=== PATIENT | female | born 1980 | race Caucasian/White ===

== ENCOUNTER → 2020-07-01 | Outpatient (CLI) | payer OTHER ==
[2020-07-01 17:30] LABS: CALCIUM 9.4 mg/dL (8.5-10.1); GFR 60.8; POTASSIUM 3.7 mmol/L (3.5-5.1)
== END ==
LOC: LAB 15:47
PROVIDERS: ATTEND Family Medicine
DX: R00.2 Palpitations (principal); R07.9 Chest pain, unspecified
CPT/HCPCS: 36415; 80048; 84484

== ENCOUNTER → 2020-07-18 | Outpatient (CLI) | payer OTHER ==
--- NOTE | 2020-07-18 12:53 | RAD ---
PROCEDURE: HAND RIGHT 3V STUDY DATE: 07/18/2020 CLINICAL INDICATION / HISTORY: Reason: INJURY / Spl. Instructions: / History: . TECHNIQUE: PA, lateral and oblique views of the right hand. COMPARISON: None FINDINGS: No fracture or dislocation is identified. The bone density is normal. The joint spaces are maintained, and there are no erosions to suggest an inflammatory arthropathy. The soft tissues are unremarkable. IMPRESSION: No acute osseous abnormality. Electronically signed by: Greg Mayer MD (07/18/2020 12:50 PM) [id number]
== END ==
LOC: RAD 11:52
PROVIDERS: ATTEND Physician Assistant Medical
DX: M79.641 Pain in right hand (principal)
CPT/HCPCS: 73130

== ENCOUNTER 2020-08-09 19:18 | Emergency (ER) | payer OTHER ==
[~2020-08-09] VITALS: Ht 170.2 cm; Wt 77.0 kg
[2020-08-09 19:29] VITALS: BP 161/114
--- NOTE | 2020-08-09 21:22 | RAD ---
EXAM: Left ankle, 3 views. HISTORY: Pain. COMPARISON: None. FINDINGS: 3 views of the left ankle are obtained. There is a tiny ossicle along the posterior medial talus, likely due to the sequela of remote injury. No acute fracture is seen. The ankle mortise is intact. There is a small plantar spur. IMPRESSION: No acute osseous finding. Electronically signed by: Mary Lomeli MD (08/09/2020 9:20 PM) [facility]
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
== END 2020-08-09 22:02 | disposition home or self-care (01) ==
LOC: ER 19:18
DX: M25.572 Pain in left ankle and joints of left foot (principal); I10 Essential (primary) hypertension; Z88.8 Allergy status to other drugs, medicaments and biological substances; V09.9XXA Pedestrian injured in unspecified transport accident, initial encounter; Y93.89 Activity, other specified; Y92.89 Other specified places as the place of occurrence of the external cause; Y99.8 Other external cause status
CPT/HCPCS: 29515; 73610; 99283

== ENCOUNTER 2020-11-11 15:37 | Emergency (ER) | payer OTHER ==
[~2020-11-11] VITALS: Ht 170.2 cm; Wt 77.0 kg
[2020-11-11] MEDS ORDERED: MECLIZINE 12.5 MG TABLET. PO ONE (16:30)
[2020-11-11] MEDS ORDERED: IV NORMAL SALINE 1,000ML 1,000 ML IV ONE (16:30)
[2020-11-11 16:41] LABS: BASO % 0 % (0-3); EOS # 0.3 x10^3/uL (0.0-0.7); EOS % 3 % (0-3); HEMOGLOBIN 14.5 g/dL (12.0-15.5); LYMPH # 1.5 x10^3/uL (1.0-4.8); LYMPH % 19 % (24-48); MEAN CORPUSCULAR HEMOGLOBIN 32 pg (25-35); MEAN CORPUSCULAR HGB CONC 34 g/dL (31-37); MEAN CORPUSCULAR VOLUME 93 fL (79-100); MONO # 0.7 x10^3/uL (0.0-1.1); MONO % 9 % (0-9); NEUT # 5.2 x10^3uL (1.8-7.7); NEUT % 68 % (31-73); PLATELET COUNT 223 x10^3/uL (140-400); RED BLOOD COUNT 4.52 x10^6/uL (3.50-5.40); RED CELL DISTRIBUTION WIDTH 12.8 % (11.5-14.5); WHITE BLOOD COUNT 7.7 x10^3/uL (4.0-11.0)
--- NOTE | 2020-11-11 16:43 | RAD ---
Study: XR CHEST 1V Indication: Vertigo. Comparison: None. Findings: Within normal limits cardiomediastinal silhouette and soraya. No lobar consolidation, layering effusion or pneumothorax. Partially imaged ACDF construct likely spanning C4-C7. Impression: No acute radiographic abnormality of the chest. Electronically signed by: ARUTRO JIMENEZ MD (11/11/2020 4:40 PM) [facility]
--- NOTE | 2020-11-11 16:43 | RAD ---
Exam: CT head INDICATION: Vertigo TECHNIQUE: Sequential axial images through the head were obtained without the administration of IV co ntrast. Comparisons: None FINDINGS: No focal parenchymal lesion or hemorrhage is identified. There is no midline shift or sulcal effaceme nt. No acute vascular territory infarction is identified. Pérez-white distinction is preserved. The ventricular system is within normal limits without compression hydrocephalus. The basal cisterns are well maintained. The visualized portions of the paranasal sinuses and mastoid air cells are well-pneumatized. No acute fractures. IMPRESSION: No acute intracranial abnormality. Exposure: One or more of the following in the visualized dose reduction techniques were utilized for this examination: 1. Automated exposure control 2. Adjustment of the MA and/or KV according to patient size Use of iterative of reconstructive technique Electronically signed by: Bethany Avila MD (11/11/2020 4:41 PM) [facility]
[2020-11-11 16:47] LABS: CALCIUM 8.8 mg/dL (8.5-10.1); CREATININE 0.9 mg/dL (0.6-1.0); GFR 68.7; POTASSIUM 3.8 mmol/L (3.5-5.1)
--- NOTE | 2020-11-11 16:52 | PHYS DOC ---
Past History Past Medical History: Hypertension, Other Additional Past Medical Histor: ADHD, INSOMNIA (SHIRLEY NAJERA MD) Past Surgical History: Hysterectomy, Other Additional Past Surgical Histo: R ANKLE, L FINGER, NECK SX (SHIRLEY NAJERA MD) Alcohol Use: None (SHIRLEY NAJERA MD) General Adult EDM: Chief Complaint: DIZZY/LIGHT HEADED HPI: HPI: Patient is a 40-year-old female coming in for multiple complaints. Patient states that starting around 11 AM today she was sitting watching television when she started feeling dizzy. Patient states she has body aches, lightheadedness, right-sided headache. Patient received her second maternal dose of Covid vaccine yesterday. States she felt well prior. Denies any tinnitus, hearing loss, ear pain. Patient has occasional headaches. Has not checked her temperature. Denies any vomiting or diarrhea. (SHIRLEY NAJERA MD) Review of Systems: Review of Systems: All other systems within normal limits except for as noted in the HPI (SHIRLEY NAJERA MD) Current Medications: Current Meds: Current Medications Medications (Trade) Dose Ordered Sig/Ila Start Time Stop Time Status Last Admin Dose Admin Meclizine HCl (Antivert) 25 mg 1X ONCE 11/11/20 16:30 11/11/20 16:31 DC 11/11/20 16:45 25 MG Sodium Chloride 1,000 ml @ 1,000 mls/hr 1X ONCE 11/11/20 16:30 11/11/20 17:29 11/11/20 16:44 1,000 MLS/HR (SHIRLEY NAJERA MD) Allergies: Allergies: Allergies Coded Allergies Type Severity Reaction Last Updated Verified cyclobenzaprine Allergy Unknown 08/09/20 Yes ketorolac Allergy Unknown 08/09/20 Yes (SHIRLEY NAJERA MD) Physical Exam: PE: Constitutional: Well developed, well nourished, no acute distress, non-toxic appearance. [] HENT: Normocephalic, atraumatic, bilateral external ears normal, bilateral TMs normal, nose normal. [] Eyes: PERRLA, conjunctiva normal, no discharge, extraocular intact, no nystagmus. [] Neck: No rigidity, supple, no stridor, no tenderness or cervical ly mphadenopathy. [] Cardiovascular: Regular rate and rhythm, brisk cap refill [] Lungs & Thorax: Non labored symmetric respirations, no tachypnea or respiratory distress [] Abdomen: Soft, nondistended. Skin: Warm, dry, no erythema, no rash, no pallor. [] Back: Unremarkable Extremities: No deformities, range of motion grossly intact, no lower extremity edema [] Neurologic: Alert and oriented X 3, no focal deficits noted. [] Psychologic: Affect normal, judgement normal, mood normal. [] (SHIRLEY NAJERA MD) Current Patient Data: Vital Signs: Vital Signs Date Time Temp Pulse Resp B/P (MAP) Pulse Ox O2 Delivery O2 Flow Rate FiO2 11/11/20 15:53 98.4 84 17 158/84 (108) 97 Room Air (SHIRLEY NAJERA MD) EKG: EKG: No sinus rhythm, heart rate 79 bpm, no ST elevation or depression, no ectopy, normal axis. [] (SHIRLEY NAJERA MD) Radiology/Procedures: Radiology/Procedures: Study: XR CHEST 1V Indication: Vertigo. Comparison: None. Findings: Within normal limits cardiomediastinal silhouette and soraya. No lobar consolidation, layering effusion or pneumothorax. Partially imaged ACDF construct likely spanning C4-C7. Impression: No acute radiographic abnormality of the chest. Exam: CT head INDICATION: Vertigo TECHNIQUE: Sequential axial images through the head were obtained without the administration of IV contrast. Comparisons: None FINDINGS: No focal parenchymal lesion or hemorrhage is identified. There is no midline shift or sulcal effacement. No acute vascular territory infarction is identified. Pérez-white distinction is preserved. The ventricular system is within normal limits without compression hydrocephalus. The basal cisterns are well maintained. The visualized portions of the paranasal sinuses and mastoid air cells are well-pneumatized. No acute fractures. IMPRESSION: No acute intracranial abnormality. [] (SHIRLEY NAJERA MD) Heart Score: C/O Chest Pain: No Risk Factors: Risk Factors: DM, Current or recent (<one month) smoker, HTN, HLP, family history of CAD, obesity. Risk Scores: Score 0 - 3: 2.5% MACE over next 6 weeks - Discharge Home Score 4 - 6: 20.3% MACE over next 6 weeks - Admit for Clinical Observation Score 7 - 10: 72.7% MACE over next 6 weeks - Early Invasive Strategies (SHIRLEY NAJERA MD) Course & Med Decision Making: Course & Med Decision Making Vertigo relieved with meclizine, still complaining of a headache despite Tylenol. Will give migraine cocktail. Work-up unremarkable. Pending medications at shift change, care transition to Dr. Schulte. [] (SHIRLEY NAJERA MD) Course & Med Decision Making Patient is a 40-year-old female who presented with headache. After headache cocktail, patient stated she was feeling better and ready to be discharged home. Gave headache/migraine symptom control options for home. Advised to follow-up with primary care physician soon as she can to discuss migraines and migraine management. Gave strict return precautions to the ED. Family grateful, verbalized understanding and agreed with plan of discharge. (SHIV FAJARDO MD) Dragon Disclaimer: Dragon Disclaimer: This electronic medical record was generated, in whole or in part, using a voice recognition dictation system. (SHIRLEY NAJERA MD) Departure Departure: Impression: Primary Impression: Headache Additional Impression: Vertigo Disposition: 01 DC HOME SELF CARE/HOMELESS Condition: GOOD Referrals: BRIGIDO BISHOP (PCP) Patient Instructions: General Headache Without Cause Additional Instructions: Please read the attached information. As discussed you can use Excedrin, ibuprofen, Benadryl and Zofran as needed for headache control at home. Please make an appointment with your primary care physician as soon as you can to discuss chronic migraine management. Please come back to the ED with new or concerning symptoms. Scripts Ondansetron Hcl (ZOFRAN) 4 Mg Tablet 1 TAB PO TID PRN for NAUSEA, #6 TAB 2 Refills Prov: SHIV FAJARDO MD 11/11/20 SHIRLEY NAJERA MD Nov 11, 2020 16:52 SHIV FAJARDO MD Nov 11, 2020 20:09
[2020-11-11 16:53] LABS: ALBUMIN 3.9 g/dL (3.4-5.0); ALBUMIN/GLOBULIN RATIO 1.1 (1.0-1.7); MAGNESIUM 1.8 mg/dL (1.8-2.4); TOTAL BILIRUBIN 0.6 mg/dL (0.2-1.0); TOTAL PROTEIN 7.5 g/dL (6.4-8.2)
[2020-11-11] MEDS ORDERED: ACETAMINOPHEN 500 MG TABLET PO ONE (17:00)
--- NOTE | 2020-11-11 17:00 | EKG ---
[address] [address] Test Date: 2020-11-11 Test Time: 16:39:14 Pat Name: VINNY ROB Department: Room: Gender: F Outside Sales Account Representative: : 1980 Requested By: SHIRLEY NAJERA Order Number: [id number] Reading MD: Measurements Intervals [place] Rate: 79 P: 50 AK: 166 QRS: 28 QRSD: 80 T: 34 QT: 400 QTc: 460 Interpretive Statements SINUS RHYTHM NORMAL ECG RI6.02 No previous ECG available for comparison
[2020-11-11] MEDS ORDERED: IV NORMAL SALINE 500ML 500 ML IV ONE (18:00)
[2020-11-11] MEDS ORDERED: PROCHLORPERAZINE 10 MG/2 ML VIAL. IV ONE (18:00)
[2020-11-11] MEDS ORDERED: diphenhydrAMINE 50 MG/ML VIAL IVP ONE (18:00)
[2020-11-11] MEDS ORDERED: KETOROLAC 15 MG/ML VIAL. IVP ONE (18:00)
[2020-11-11 18:23] LABS: BILIRUBIN,URINE NEG (NEG); CLARITY,URINE CLEAR; COLOR,URINE STRAW; GLUCOSE,URINE NEG (NEG); NITRITE,URINE NEG (NEG); UROBILINOGEN,URINE 0.2 mg/dL (0.2 mg/dL)
[2020-11-11 18:24] LABS: BACTERIA,URINE 0 /HPF (0-FEW); RBC,URINE 0 /HPF (0-2); SQUAMOUS EPITHELIAL CELL,UR MOD /LPF; WBC,URINE OCC /HPF (0-4)
[2020-11-11] MEDS ORDERED: ONDANSETRON PF 4 MG/2 ML VIAL. IVP ONE (19:00)
[2020-11-11] MEDS ORDERED: MORPHINE SULFATE 2 MG/ML DISP.SYRIN. IV ONE (19:00)
[2020-11-11] MEDS ORDERED: ONDA4TAB7 PO (20:10)
[2020-11-11 20:28] VITALS: BP 114/72
== END 2020-11-11 20:30 | disposition home or self-care (01) ==
LOC: ER 15:37
DX: R51.9 Headache, unspecified (principal); R42 Dizziness and giddiness; I10 Essential (primary) hypertension; F90.9 Attention-deficit hyperactivity disorder, unspecified type; Z90.710 Acquired absence of both cervix and uterus; Z98.890 Other specified postprocedural states; Z88.8 Allergy status to other drugs, medicaments and biological substances
CPT/HCPCS: 36415; 70450; 71045; 80053; 81001; 83605; 83735; 85025; 93005; 96361; 96374; 96375; 99285; J0780; J1200; J1885; J2270; J2405; J7030; J7040

== ENCOUNTER → 2020-11-29 | Outpatient (CLI) | payer OTHER ==
[2020-11-11 20:28] VITALS: BP 114/72
[~2020-11-29] MED LIST: ONDA4TAB7 PO
--- NOTE | 2020-11-30 08:22 | RAD ---
PROCEDURE: XR HAND_RIGHT 3 VIEWS STUDY DATE: 11/29/2020 CLINICAL INDICATION / HISTORY: Right hand pain after a fall. TECHNIQUE: PA, lateral and oblique views of the right hand. COMPARISON: 07/18/2020 right hand x-rays. FINDINGS: No fracture or dislocation is identified. The bone density is normal. The joint spaces are maintained, and there are no erosions to suggest an inflammatory arthropathy. The soft tissues are un remarkable. IMPRESSION: No acute osseous abnormality. Electronically signed by: Greg Mayer MD (11/30/2020 8:19 AM) [id number]
== END ==
LOC: RAD 15:02
PROVIDERS: ATTEND Physician Assistant Medical
DX: S69.90XA Unspecified injury of unspecified wrist, hand and finger(s), initial encounter (principal); X58.XXXA Exposure to other specified factors, initial encounter; Y93.89 Activity, other specified; Y92.89 Other specified places as the place of occurrence of the external cause; Y99.8 Other external cause status
CPT/HCPCS: 73130

== ENCOUNTER → 2020-12-27 | Outpatient (CLI) | payer OTHER ==
--- NOTE | 2020-12-27 10:46 | RAD ---
EXAM: LEFT ELBOW 3 VIEWS. HISTORY: Fall, pain. COMPARISON: None. FINDINGS: No fractures are identified. Joint spaces and alignment are maintained. There are small ost eophytes along the humeral ulnar articulation. There is no joint effusion. IMPRESSION: 1. No fracture or joint effusion. 2. 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 Electronically signed by: Raffi Bravo MD (12/27/2020 10:44 AM) [id number]
== END ==
LOC: RAD 10:21
PROVIDERS: ATTEND Physician Assistant Medical
DX: M19.022 Primary osteoarthritis, left elbow (principal)
CPT/HCPCS: 73080

== ENCOUNTER 2021-03-16 16:43 | Emergency (ER) | payer OTHER ==
[~2021-03-16] VITALS: Ht 170.2 cm; Wt 78.5 kg
[2021-03-16 16:51] VITALS: BP 151/99
[2021-03-16] MEDS ORDERED: CEPH500T PO (17:47)
--- NOTE | 2021-03-16 17:48 | PHYS DOC ---
Past History Past Medical History: Hypertension, Other Additional Past Medical Histor: ADHD, INSOMNIA (RUSTY KOCH APRN) Past Surgical History: Hysterectomy, Other Additional Past Surgical Histo: R ANKLE, L FINGER, NECK SX (RUSTY KOCH APRN) Alcohol Use: None (RUSTY KOCH APRN) General Adult EDM: Chief Complaint: LOWER EXTREMITY SWELLING HPI: HPI: Patient is a 40-year-old female who presents to the ER today for also the anterior aspects of her bilateral legs. Patient reports that she sat outside with her family on Saturday and noticed the redness along with pain and swelling on Saturday. She denies any new products, injuries, insect bites, chest pain, shortness of breath, difficulty breathing, periods of immobility, leg. (RUSTY KOCH APRN) Review of Systems: Review of Systems: 14 body systems of the review of systems have been reviewed. See HPI for pertinent positive and negative responses, otherwise all other systems are negative, nonpertinent or noncontributory (RUSTY KOCH APRN) Allergies: Allergies: Allergies Coded Allergies Type Severity Reaction Last Updated Verified cyclobenzaprine Allergy Unknown 08/09/20 Yes ketorolac Allergy Unknown 08/09/20 Yes (RUSTY KOCH APRN) Physical Exam: PE: Constitutional: Well developed, well nourished, no acute distress, non-toxic appearance. [] HENT: Normocephalic, atraumatic, no oropharyngeal swelling, uvula midline, no trismus, postnasal drainage noted Eyes: PERRL, conjunctiva normal, no discharge. [] Neck: Normal range of motion, no stridor Cardiovascular: Normal peripheral perfusion, no edema Lungs & Thorax: No increased work of breathing, no tachypnea Abdomen: Bowel sounds normal, soft, no tenderness, no masses, no pulsatile masses. [] Skin: Warm, dry, patient has dark red discoloration to the anterior aspect of her bilateral lower legs that extends to her thighs and into the straight line appears that this may be sunburn versus skin infection Back: Normal range of motion Extremities: No tenderness, no cyanosis, no clubbing, ROM intact, no edema. [] Neurologic: Alert and oriented X 3, normal motor function, normal sensory function, no focal deficits noted. [] Psychologic: Affect normal, judgement normal, mood normal. [] (RUSTY KOCH APRN) Current Patient Data: Vital Signs: Vital Signs Date Time Temp Pulse Resp B/P (MAP) Pulse Ox O2 Delivery O2 Flow Rate FiO2 03/16/21 16:51 98.4 92 6 151/99 100 Room Air (RUSTY KOCH APRN) EKG: EKG: [] (RUSTY KOCH APRN) Radiology/Procedures: Radiology/Procedures: [] (RUSTY KOCH APRN) Heart Score: C/O Chest Pain: No Risk Factors: Risk Factors: DM, Current or recent (<one month) smoker, HTN, HLP, family history of CAD, obesity. Risk Scores: Score 0 - 3: 2.5% MACE over next 6 weeks - Discharge Home Score 4 - 6: 20.3% MACE over next 6 weeks - Admit for Clinical Observation Score 7 - 10: 72.7% MACE over next 6 weeks - Early Invasive Strategies (RUSTY KOCH APRN) Course & Med Decision Making: Course & Med Decision Making Pertinent Labs and Imaging studies reviewed. (See chart for details) Patient is a 40-year-old female being seen in the ER for redness to bilateral lower extremities. It is possible that patient has a sunburn versus skin infection. Patient to be sent home with Keflex. I discussed with patient all findings as well as the need to follow-up with PCP for further evaluation and treatment or return to the ER if any new or worsening symptoms. Strict return precautions were also discussed at length. Patient voiced understanding and agreement with the plan. Patient is hemodynamically stable at the time of disposition. (RUSTY KOCH APRN) Dragon Disclaimer: Dragon Disclaimer: This electronic medical record was generated, in whole or in part, using a voice recognition dictation system. (RUSTY KOCH APRN) Attending Co-Sign The patient was seen and interviewed as well as examined at the bedside. The chart was reviewed. The case was discussed. Agree with the plan of care. (BULL HENRIQUEZ DO) Departure Departure: Impression: Primary Impression: Cellulitis Qualified Codes: L03.119 - Cellulitis of unspecified part of limb Disposition: HOME / SELF CARE / HOMELESS Condition: GOOD Referrals: BRIGIDO BISHOP (PCP) Patient Instructions: Cellulitis Additional Instructions: Were seen in the ER today for bilateral lower extremity redness. Is likely that this is due to sunburn due to the appearance of the redness. It is also possible that it is a skin infection. Please take the antibiotic as directed started and finish it completely. Please follow-up with your primary care provider today regarding your ER visit. If you have worsening of your condition or develop fevers, uncontrollable nausea or vomiting, belly pain, shortness of breath, difficulty breathing, difficulty swallowing please return. EMERGENCY DEPARTMENT GENERAL DISCHARGE INSTRUCTIONS Thank you for coming to [facility] (ED) today and trusting us with you care. We trust that you had a positivie experience in our Emergency Department. If you wish to speak to the department management, you may call the director at [phone]. YOUR FOLLOW UP INSTRUCTIONS ARE FOLLOWS: 1. Do you have a private Doctor? If you do not have a private doctor, please ask for a resource list of physicians or clinics that may be able to assist you with follow up care. 2. The Emergency Physician has interpreted your x-rays. The X-Ray specialist will also review them. If there is a change in the findings, you will be notified in 48 hours when at all possible. 3. A lab test or culture has been done, your results will be reviewed and you will be notified if you need a change in treatment. ADDITIONAL INSTRUCTIONS AND INFORMATION: 1. Your care today has been supervised by a physician who is specially trained in emergency care. Many problems require more than one evaluation for a complete diagnosis and treatment. We recommend that you schedule your follow up appointment as recommended to ensure complete treatment of you illness or injury. If you are unable to obtain follow up care and continue to have a problem, or if your condition worsens, we recommend that you return to the ED. 2. We are not able to safely determine your condition over the phone nor are we able to give sound medical advice over the phone. For these safety reasons, if you call for medical advice we will ask you to come to the ED for further evaluation. 3. If you have any questions regarding these discharge instructions please call the ED at [phone]. SAFETY INFORMATION: In the interest of safety, wellness, and injury prevention; we encourage you to wear your sealbelt, if you smoke; quite smoking, and we encourage family to use a protective helmet for bicycling and other sporting events that present an increased risk for head injury. IF YOUR SYMPTOMS WORSEN OR NEW SYMPTOMS DEVELOP, OR YOU HAVE CONCERNS ABOUT YOUR CONDITION; OR IF YOUR CONDITION WORSENS WHILE YOU ARE WAITING FOR YOUR FOLLOW UP APPOINTMENT; EITHER CONTACT YOUR PRIMARY CARE DOCTOR, THE PHYSICIAN WHOSE NAME AND NUMBER YOU WERE GIVEN, OR RETURN TO THE ED IMMEDIATELY. Scripts Cephalexin (CEPHALEXIN) 500 Mg Tablet 1 TAB PO QID for skin infection for 5 Days, #20 TAB 0 Refills Prov: RUSTY KOCH APRN 03/16/21 RUSTY KOCH APRN Mar 16, 2021 17:48 BULL HENRIQUEZ DO Mar 18, 2021 08:53
== END 2021-03-16 17:53 | disposition home or self-care (01) ==
LOC: ER 16:43
DX: L03.116 Cellulitis of left lower limb (principal); L03.115 Cellulitis of right lower limb; I10 Essential (primary) hypertension; Z88.8 Allergy status to other drugs, medicaments and biological substances
CPT/HCPCS: 99283

== ENCOUNTER → 2021-03-17 | Outpatient (CLI) | payer OTHER ==
[2021-03-16 16:51] VITALS: BP 151/99
[~2021-03-17] MED LIST changes: +CEPH500T PO
[2021-03-17 10:56] LABS: BASO % 0 % (0-3); EOS # 0.3 x10^3/uL (0.0-0.7); EOS % 3 % (0-3); HEMATOCRIT 39.2 % (36.0-47.0); HEMOGLOBIN 13.7 g/dL (12.0-15.5); LYMPH # 1.9 x10^3/uL (1.0-4.8); LYMPH % 19 % (24-48); MEAN CORPUSCULAR HEMOGLOBIN 33 pg (25-35); MEAN CORPUSCULAR HGB CONC 35 g/dL (31-37); MEAN CORPUSCULAR VOLUME 93 fL (79-100); MONO # 0.5 x10^3/uL (0.0-1.1); MONO % 5 % (0-9); NEUT # 7.1 x10^3uL (1.8-7.7); NEUT % 72 % (31-73); PLATELET COUNT 238 x10^3/uL (140-400); RED CELL DISTRIBUTION WIDTH 12.8 % (11.5-14.5); WHITE BLOOD COUNT 9.9 x10^3/uL (4.0-11.0)
[2021-03-17 11:12] LABS: ALBUMIN 4.2 g/dL (3.4-5.0); ALBUMIN/GLOBULIN RATIO 1.3 (1.0-1.7); C REACTIVE PROTEIN 1.7 mg/L (0-3.3); CALCIUM 8.5 mg/dL (8.5-10.1); GFR 60.8; POTASSIUM 3.8 mmol/L (3.5-5.1); TOTAL BILIRUBIN 0.6 mg/dL (0.2-1.0); TOTAL PROTEIN 7.5 g/dL (6.4-8.2)
== END ==
LOC: LAB 09:58
PROVIDERS: ATTEND Family Medicine
DX: M79.89 Other specified soft tissue disorders (principal)
CPT/HCPCS: 36415; 80053; 83880; 85025; 85610; 86140

== ENCOUNTER 2022-01-17 07:53 | Emergency (ER) | payer OTHER ==
[~2022-01-17] VITALS: Ht 170.2 cm; Wt 78.5 kg
[2022-01-17 08:00] VITALS: BP 158/93
--- NOTE | 2022-01-17 08:50 | PHYS DOC ---
Past History Past Medical History: Hypertension, Other Additional Past Medical Histor: ADHD, INSOMNIA Past Surgical History: Hysterectomy, Other Additional Past Surgical Histo: R ANKLE, L FINGER, NECK SX Alcohol Use: None General Adult EDM: Chief Complaint: LACERATION/AVULSION HPI: HPI: 41-year-old female presents with a left forearm laceration. 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 When she looked down she noticed that she had a gash in her left forearm. She has no idea what she cut it on. It could have been one of the crates or one of the shelves that she was stocking. The patient had bleeding but was controlled prior to arrival by EMS. She denies any other injuries. Her tetanus shot was 3 years ago. Review of Systems: Review of Systems: Constitutional: Denies fever or chills Eyes: Denies change in visual acuity HENT: Denies nasal congestion or sore throat Respiratory: Denies cough or shortness of breath Cardiovascular: Denies chest pain or edema GI: Denies abdominal pain, nausea, vomiting, bloody stools or diarrhea : Denies dysuria Musculoskeletal: Denies back pain or joint pain Integument: Laceration left forearm Neurologic: Denies headache, focal weakness or sensory changes Endocrine: Denies polyuria or polydipsia Lymphatic: Denies swollen glands Psychiatric: Denies depression or anxiety Allergies: Allergies: Allergies Coded Allergies Type Severity Reaction Last Updated Verified cyclobenzaprine Allergy Unknown 08/09/20 Yes ketorolac Allergy Unknown 08/09/20 Yes Physical Exam: PE: Constitutional: Well developed, well nourished, no acute distress, non-toxic appearance. [] HENT: Normocephalic, atraumatic, bilateral external ears normal, oropharynx moist, no oral exudates, nose normal. [] Eyes: PERRLA, EOMI, conjunctiva normal, no discharge. [] Neck: Normal range of motion, no tenderness, supple, no stridor. [] Cardiovascular:Heart rate regular rhythm, no murmur [] Lungs & Thorax: Bilateral breath sounds clear to auscultation [] Abdomen: Bowel sounds normal, soft, no tenderness, no masses, no pulsatile masses. [] Skin: 6 cm linear laceration of the left forearm [] Back: No tenderness, no CVA tenderness. [] Extremities: No tenderness, no cyanosis, no clubbing, ROM intact, no edema. [] Neurologic: Alert and oriented X 3, normal motor function, normal sensory function, no focal deficits noted. [] Psychologic: Affect normal, judgement normal, mood normal. [] Current Patient Data: Vital Signs: Vital Signs Date Time Temp Pulse Resp B/P (MAP) Pulse Ox O2 Delivery O2 Flow Rate FiO2 01/17/22 08:00 98.0 95 16 158/93 (114) 97 Room Air EKG: EKG: [] Radiology/Procedures: Radiology/Procedures: [] Heart Score: C/O Chest Pain: N/A Risk Factors: Risk Factors: DM, Current or recent (<one month) smoker, HTN, HLP, family history of CAD, obesity. Risk Scores: Score 0 - 3: 2.5% MACE over next 6 weeks - Discharge Home Score 4 - 6: 20.3% MACE over next 6 weeks - Admit for Clinical Observation Score 7 - 10: 72.7% MACE over next 6 weeks - Early Invasive Strategies Course & Med Decision Making: Course & Med Decision Making Pertinent Labs and Imaging studies reviewed. (See chart for details) I repaired the patient's laceration with sutures. See note below for details. Her tetanus is up-to-date. I will cover her with Keflex due to the potential of a dirty wound from the environment. She is stable for discharge at this time. [] Dragon Disclaimer: Dragon Disclaimer: This electronic medical record was generated, in whole or in part, using a voice recognition dictation system. Laceration Repair Lac Repair Indication: [] 6 cm linear laceration of the left forearm Procedure: I obtained verbal consent from the patient procedure repair of her left forearm laceration. The wound was thoroughly irrigated with normal saline under pressure. No foreign bodies were found. I anesthetized the wound with 1% lidocaine with epinephrine. A total of 2.5 cc was used. After good anesthesia was achieved, I placed 9 interrupted sutures. 4-0 Ethilon was used. The skin was well approximated. Bleeding was controlled. A clean dressing was applied. Tetanus is already up-to-date. Total repaired wound length: 6 cm. Other Items: None The patient tolerated the procedure well. Complications: None. Departure Departure: Impression: Primary Impression: Laceration of left forearm Disposition: 01 HOME / SELF CARE / HOMELESS Condition: IMPROVED Referrals: BRIGIDO BISHOP (PCP) Patient Instructions: Laceration Care, Adult, [id number] Additional Instructions: You should have your sutures removed in 7-10 days, no more than 14. Please keep the wound dry for at least 24 hours. You can then shower normally. Be careful not to tear the knots on the sutures. He should keep the wound covered while you are at work and then covered while at home. BULL HENRIQUEZ DO January 17, 2022 08:50
[2022-01-17] MEDS ORDERED: CEPH500T PO (08:58)
[2022-01-17] MEDS ORDERED: CEPHALEXIN 250 MG CAPSULE ONE (08:58)
[2022-01-17] MEDS ORDERED: CEPHALEXIN 250 MG CAPSULE PO ONE (09:00)
== END 2022-01-17 09:05 | disposition home or self-care (01) ==
LOC: ER 07:53
DX: S51.812A Laceration without foreign body of left forearm, initial encounter (principal); I10 Essential (primary) hypertension; Z88.8 Allergy status to other drugs, medicaments and biological substances; W26.8XXA Contact with other sharp object(s), not elsewhere classified, initial encounter; Y93.89 Activity, other specified; Y92.89 Other specified places as the place of occurrence of the external cause; Y99.8 Other external cause status
CPT/HCPCS: 12002; 99283